=== PATIENT | female | born 2000 | race Caucasian/White ===

== ENCOUNTER 2023-02-06 20:16 | Observation (INO) | payer MEDICAID, OTHER ==
[~2023-02-06] VITALS: Ht 157.5 cm; Wt 72.1 kg
[2023-02-06] MEDS ORDERED: PREN1TAB23 PO (20:43)
== END 2023-02-06 23:55 | disposition home or self-care (01) ==
LOC: 8 EST LDRP 20:16
PROVIDERS: ADMIT Obstetrics & Gynecology; ATTEND Obstetrics & Gynecology
DX: O26.892 Other specified pregnancy related conditions, second trimester (principal); R10.9 Unspecified abdominal pain; O36.8120 Decreased fetal movements, second trimester, not applicable or unspecified; Z3A.26 26 weeks gestation of pregnancy; Y04.0XXA Assault by unarmed brawl or fight, initial encounter; Y93.89 Activity, other specified; Y92.89 Other specified places as the place of occurrence of the external cause; Y99.8 Other external cause status
CPT/HCPCS: 59025; 76805; G0378; 99281